=== PATIENT | female | born 1965 | race African-American/Black ===

== ENCOUNTER 2016-06-18 11:22 | Inpatient (IN) | payer OTHER, MEDICARE ==
--- NOTE | ~2016-06-18 | OP ---
Record Of Operation [facility] [address] [place]. [address] NAME: GIOVANI AGUIRRE : 65 STATUS : ADM IN PAT#: [id number] AGE: 50 ADM/REG DATE : 06/18/16 MR#: [id number] REPORT SERV DATE: 06/22/16 DICTATED BY: TRELL ALCOCER DATE: 06/20/16 REPORT STATUS : Draft TRANSCRIBED BY: HEDY DATE: 06/20/16 DATE OF PROCEDURE: 06/19/2016 PREOPERATIVE DIAGNOSES: 1. Thrombosed left upper extremity arteriovenous graft. 2. Chronic kidney disease, stage V. POSTOPERATIVE DIAGNOSES: 1. Thrombosed left upper extremity arteriovenous graft. 2. Chronic kidney disease, stage V. PROCEDURE: 1. Right IJ PermCath. 2. AV graft thrombectomy. 3. Fistulogram. 4. Open angioplasty and stenting of the venous anastomosis. SURGEON: Trell Alcocer M.D. COMMERCIAL PLUMBER: Sergei Anderson. ANESTHESIA: MAC plus local. INDICATIONS: The patient is a 50-year-old female with chronic kidney disease, stage V, who underwent a forearm loop AV graft. This thrombosed, and it looks like she is heading towards dialysis. I talked to her about the risks, benefits, and alternatives of PermCath placement as well as AV graft thrombectomy with intervention. She agreed to proceed. DESCRIPTION OF PROCEDURE: After informed consent was obtained, the patient was taken to the operating room and placed in a supine position on the operating table. The patient's right neck and chest were prepped and draped in the usual sterile fashion. Monitored anesthesia was administered along with some local anesthesia. Ultrasound-guided access was obtained of the right internal jugular vein. The ultrasound image was documented on the chart. I passed a wire centrally. I made a small skin incision along the right neck and chest. I tunneled a 19-cm curved HemoSplit catheter from the right chest to the right neck. I inserted a peel-away sheath over the aforementioned wire using fluoroscopic guidance. I subsequently inserted the catheter into the peel-away sheath under fluoroscopy and peeled away the sheath. I confirmed that the catheter was not kinked and that it aspirated and flushed well. The right neck wound was closed. The catheter was sutured in place and packed with heparin. At this point, the left upper extremity was prepped and draped in the usual sterile fashion. I began by opening up the forearm skin incision. I controlled the AV graft. I systemically heparinized. I created a transverse graftotomy. I passed a 4- [place] Jasmin catheter towards the venous end of the graft. I retrieved thrombus. I obtained imaging that demonstrated persistent thrombus. I passed a Jasmin catheter multiple times and still was not able to retrieve one portion of the thrombus. It looked like there was a very small outflow brachial vein. There was perhaps some stenosis noted Record Of Operation [address] [place]. [address] NAME: GIOVANI AGUIRRE : 65 STATUS : ADM IN [facility]#: [id number] AGE: 50 ADM/REG DATE : 06/18/16 MR#: [id number] REPORT SERV DATE: 06/22/16 DICTATED BY: TRELL ALCOCER DATE: 06/20/16 REPORT STATUS : Draft TRANSCRIBED BY: HEDY DATE: 06/20/16 right at the toe of the anastomosis. Thus, I angioplastied this region with a 7 mm balloon and tried again to perform a thrombectomy. After several failed attempts and with a persistent stenosis, I stented the venous anastomosis with an 8 x 50 mm VIABAHN stent. I subsequently angioplastied this stent. Imaging obtained afterwards showed a great result. I then performed a thrombectomy of the arterial side of the graft. I obtained imaging that demonstrated no residual thrombus. There was no distal embolization. Thus, I withdrew my sheath and closed up the graftotomy. I washed out the wound, achieved hemostasis, and closed the wound in layers. The patient tolerated the procedure well without any intraprocedural complications noted. SET UP MACHINIST/HEDY Trell Alcocer M.D. / [id number] CC: Erin Matias M.D.
--- NOTE | ~2016-06-18 | OP ---
Record Of Operation [facility] [address] [place]. [address] NAME: GIOVANI AGUIRRE : 65 STATUS : ADM IN PAT#: [id number] AGE: 50 ADM/REG DATE : 06/18/16 MR#: [id number] REPORT SERV DATE: 06/22/16 DICTATED BY: TRELL ALCOCER DATE: 06/20/16 REPORT STATUS : Draft TRANSCRIBED BY: MODAmada DATE: 06/20/16 DATE OF PROCEDURE: 06/18/2016 PREOPERATIVE DIAGNOSIS: Chronic kidney disease, stage V. POSTOPERATIVE DIAGNOSIS: Chronic kidney disease, stage V. PROCEDURE: Left forearm loop AV graft. SURGEON: Trell Alcocer M.D. SPA CONSULTANT: Bharat Esposito. ANESTHESIA: Block. INDICATIONS: The patient is a 50-year-old female, who has chronic kidney disease, stage V. I talked to her about the risks, benefits, and alternatives of catheter-based dialysis, arteriovenous fistulas, and arteriovenous grafts. With all this in mind, she agreed to proceed. DESCRIPTION OF PROCEDURE: After informed consent was obtained, the patient was taken to the operating room and placed in the supine position on the operating table. Monitored anesthesia was administered along with a block. The patient's left upper extremity was examined with an ultrasound. I found that the veins were all small, so we decided to perform a forearm loop graft to preserve as many dialysis access options as possible. A transverse skin incision was made just distal to the antecubital fossa. Cautery was used to deepen the incision. I dissected out the brachial artery and the brachial vein. The brachial artery was about 3 mm in diameter. The brachial vein was about the same size. It looked like there were actually paired brachial veins. I tunneled a 4 to 7 mm PTFE graft in a subcutaneous position. The arterial end was on the medial aspect of the forearm. I used the assistance of a counterincision along the forearm. I flushed the graft, confirmed that there were no kinks. I spatulated both ends. I systemically heparinized. I controlled the brachial artery. I created a longitudinal arteriotomy, onto which I sewed the end of the arteriovenous graft. I flushed off air and debris. I tied down the sutures. I flushed the graft and clamped it. I controlled the brachial vein. I created a longitudinal venotomy. I sewed the spatulated end of the graft onto the side of the vein. I flushed off air and debris before tying down the sutures. I released flow. There was good continuous flow through the graft and a thrill more centrally within the brachial vein. I washed out the wound, achieved hemostasis, and closed the wound in layers. The patient tolerated the procedure well without any intraprocedural complications noted. ROUTE CDL DRIVER/HEDY Trell Schulz Record Of Operation [address] [place]. [address] NAME: GIOVANI AGUIRRE : 65 STATUS : ADM IN PAT#: [id number] AGE: 50 ADM/REG DATE : 06/18/16 MR#: [id number] REPORT SERV DATE: 06/22/16 DICTATED BY: TRELL ALCOCER DATE: 06/20/16 REPORT STATUS : Draft TRANSCRIBED BY: MODL DATE: 06/20/16 Erin Alcocer / [id number] CC: Erin Matias M.D.
--- NOTE | ~2016-06-18 | CN ---
Consultation Report [facility] [address] [place]. [address] NAME: GIOVANI AGUIRRE : 65 STATUS : ADM IN PAT#: [id number] AGE: 50 ADM/REG DATE : 06/18/16 MR#: [id number] REPORT SERV DATE: 06/22/16 DICTATED BY: LOUIS SINCLAIR DATE: 06/22/16 REPORT STATUS : Draft TRANSCRIBED BY: MODAmada DATE: 06/22/16 PSYCHIATRIC CONSULTATION DATE OF CONSULTATION: 06/22/2016 I reviewed this patient's medical record and also some old records. I discussed her status with her nurse. I discussed her history with her who was at the bedside. HISTORY OF PRESENT ILLNESS: She was admitted with end-stage renal disease and poorly controlled diabetes mellitus. Her explained that she was depressed a few days ago when she was informed about the progression of her kidney disease and the need for hemodialysis. He said since that time she has been doing much better, and she is now more reconciled to her medical status. PAST PSYCHIATRIC HISTORY: Some years ago, she was treated at [facility] for depression. She returned to [facility] a year or two ago to get counseling for opioid dependence. Subsequently, she succeeded in totally getting off all opioids. Unfortunately, during this admission, opioids have been reintroduced, with the risk of reactivating her dependence. SOCIAL HISTORY: Her is very supportive. MENTAL STATUS: The patient was reluctantly cooperative with this examination. She asked her to answer most of my questions and to generally speak for her. However, when the subject of opioid dependence was raised, she did talk in a defensive and angry manner. She said "what am I supposed to do when I am in pain." "What about my fibromyalgia." Her mood overall was somewhat dysphoric. Her affect was mildly labile. Her thinking was logical. She had no delusions. She had no hallucinations. She was oriented to time, place, and person. DIAGNOSES: 1. Depression associated with chronic kidney disease and the need for hemodialysis. 2. 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 RECOMMENDATIONS: We should try to keep opioids prescribing to a minimum. I will not prescribe an antidepressant medication at this time, but this medication may be considered later if her depression increases or becomes more continuous. I will sign off. BETSY/HEDY Louis Sinclair M.D. Consultation Report [address] [place]. [address] NAME: GIOVANI AGUIRRE : 65 STATUS : ADM IN PAT#: [id number] AGE: 50 ADM/REG DATE : 06/18/16 MR#: [id number] REPORT SERV DATE: 06/22/16 DICTATED BY: LOUIS SINCLAIR DATE: 06/22/16 REPORT STATUS : Draft TRANSCRIBED BY: SAMYL DATE: 06/22/16 / [id number] CC: Trell Alcocer M.D. NO PCP
--- NOTE | ~2016-06-18 | OP ---
Record Of Operation [facility] [address] [place]. [address] NAME: GIOVANI AGUIRRE : 65 STATUS : DIS IN PAT#: [id number] AGE: 50 ADM/REG DATE : 06/18/16 MR#: [id number] REPORT SERV DATE: 06/28/16 DICTATED BY: TRELL DANG DATE: 06/28/16 REPORT STATUS : Draft TRANSCRIBED BY: MODAmada DATE: 06/28/16 DATE OF PROCEDURE: 06/24/2016 PREOPERATIVE DIAGNOSIS: End-stage renal disease. POSTOPERATIVE DIAGNOSIS: End-stage renal disease. PROCEDURE: Left brachial artery to axillary vein AV graft. SURGEON: Trell Dang M.D. ANESTHESIA: Block plus local. INDICATION: The patient is a 50-year-old female, who has end-stage renal disease. I placed a forearm loop graft, but it thrombosed right away. I performed a thrombectomy and stented the outflow, but the graft thrombosed again. Now, she has consented for an upper arm graft. DESCRIPTION OF PROCEDURE: After informed consent was obtained, the patient was taken to the operating room and placed in the supine position on the operating table. A block had previously been administered. The patient's left upper extremity was prepped and draped in usual sterile fashion. The block did not work very well, so local anesthetic was administered. Skin incisions were made overlying the brachial artery and axillary vein. These were dissected out. I systemically heparinized after tunneling a 4 to 7 mm PTFE graft in the subcutaneous position. I spatulated the 7 mm end of the graft and sewed it onto the side of the axillary vein after creating a venotomy. Of note, the axillary vein was about 3 mm in diameter. I then controlled the brachial artery, which measured about 5 mm in diameter. I created a longitudinal arteriotomy. I spatulated the 4 mm end of the graft and sewed it onto the side of the artery. I flushed of air and debris before tying down the sutures. I then achieved hemostasis. I washed out the wounds and closed them in layers. The patient had a very weak thrill within our graft. She has very limited options for dialysis access, so we may consider putting her on anticoagulation. POSITION CLASSIFICATION SPECIALIST/HEDY Trell Dang M.D. / [id number] CC: Trell Dang M.D. [facility]
[~2016-06-18 11:22] MED LIST: AMIT100 PO; AMIT50 PO; AMLODIPINE; AT25 PO; BAC PO; CAT1 PO; COQ10100 MG PO; DILT-XR180 MG PO; DIOV160 PO; DIOVAN320 MG PO; DOLOPHINE10 MG PO; DURA25 TOP; FLONASE NAS; FLOVENT DISK250 MCG INH; FOLIC PO; GLUCAGEN IM; HCTZ25B PO; HUMAPUMP SC; HYDROCHLOROT12.5 MG PO; HYGROTON 25 MG25 MG PO; KLOR-CON M2020 MEQ PO; LANTUS FOR SC; LEVAQUIN750 MG PO; LEVSINTAB PO; LIOR10 PO; LORT7 PO; LORTAB10 PO; MACROBID PO; METHOC750B PO; NORV5 PO; NOVOLOG SC; OXYCOD PO; OXYCONTIN15 MG PO; PR25 PO; PRILO PO; REG PO; REG5 PO; SAVELLA50 MG PO; STRESS600T PO; T PO; VASOTEC20 MG PO; VITAMIN D1000 UNI1 PO; VITE PO; ZANAFLEX2 MG OR; ZANTAC150 MG PO; ZOFRAN4 PO; ZOFRANODT8 PO
[2016-06-19 09:26] LABS: HEMOGLOBIN 8.2 g/dL (12.0-16.0); MEAN CORPUSCULAR HEMOGLOB 23.3 pg (26.0-34.0); PLATELET COUNT 496 10/3/uL (150-400); RBC DISTRIBUTION WIDTH 14.3 % (12.0-16.0); RED CELL COUNT 3.52 10/6/uL (4.0-5.6); WHITE BLOOD CELLS 10.7 10/3/uL (4.5-10.5)
[2016-06-19 09:27] LABS: MANUAL DIFF YES %; MEAN CORPUS HGB CONC 32.8 g/dL (32.0-36.0)
[2016-06-19 09:40] LABS: A/G RATIO 0.3 (0.7-1.9); ALBUMIN 1.5 G/DL (3.5-5.0); ALKALINE PHOSPHATASE 88 U/L (45-117); BUN (BLOOD UREA NITROGEN) 30 MG/DL (6-23); CALCIUM, SERUM 8.3 MG/DL (8.5-10.4); CHLORIDE, SERUM 114 MMOL/L (96-112); CO2 (CARBON DIOXIDE) 18 MMOL/L (24-34); CREATININE 5.51 MG/DL (0.55-1.02); GFR AFRICAN AMERICAN 10 ML/MIN (>=60); GFR NON AFRICAN AMERICAN 8 ML/MIN (>=60); GLOBULIN 4.6 G/DL (2.5-4.1); GLUCOSE, SERUM 159 MG/DL (60-99); POTASSIUM, SERUM 4.4 MMOL/L (3.5-5.3); SGOT(AST) 17 U/L (5-40); SGPT(ALT) 15 U/L (5-65); SODIUM, SERUM 143 MMOL/L (135-148); TOTAL BILIRUBIN 0.1 MG/DL (0-1.2); TOTAL PROTEIN 6.1 G/DL (6.0-8.5)
[2016-06-19 09:46] LABS: BAND NEUTROPHILS 10 %; LYMPHOCYTES 14 %; MONOCYTES 7 %; MONOCYTES ABSOLUTE (CALC) 0.75 10/3/uL (0.21-1.20); NEUTROPHILS ABSOLUTE (CALC) 8.45 10/3/uL (2.02-8.40); SEGMENTED NEUTROPHIL (0) 69 %; TOTAL NUCLEATED CELLS 100
[2016-06-19 09:47] LABS: HYPOCHROMIA 1+ (3-10/OIF) (0-2/OIF); PLATELET ESTIMATE SLT INC (ADEQUATE)
[2016-06-20 07:05] LABS: BASOPHILS 0.1 %; BASOPHILS ABSOLUTE 0.01 10/3/uL (0.0-0.16); EOSINOPHILS 2.4 %; EOSINOPHILS ABSOLUTE 0.28 10/3/uL (0.0-0.53); HEMATOCRIT 24.4 % (36.0-48.0); HEMOGLOBIN 7.9 g/dL (12.0-16.0); IMMATURE GRANULOCYTES 1.7 %; IMMATURE GRANULOCYTES ABSOLUTE 0.19 10/3/uL (0.0-0.11); LYMPHOCYTES 41.7 %; LYMPHOCYTES ABSOLUTE 4.78 10/3/uL (0.67-4.30); MEAN CORPUS HGB CONC 32.4 g/dL (32.0-36.0); MEAN CORPUSCULAR HEMOGLOB 23.2 pg (26.0-34.0); MEAN CORPUSCULAR VOLUME 71.6 fL (80-100); MEAN PLATELET VOLUME 8.2 fL (9.2-13.0); MONOCYTES 7.2 %; MONOCYTES ABSOLUTE 0.82 10/3/uL (0.21-1.20); NEUTROPHILS 46.9 %; NEUTROPHILS ABSOLUTE 5.37 10/3/uL (2.02-8.40); PLATELET COUNT 540 10/3/uL (150-400); RBC DISTRIBUTION WIDTH 14.6 % (12.0-16.0); RED CELL COUNT 3.41 10/6/uL (4.0-5.6); WHITE BLOOD CELLS 11.5 10/3/uL (4.5-10.5)
[2016-06-20 07:07] LABS: MANUAL DIFF NO %
[2016-06-20 07:28] LABS: A/G RATIO 0.3 (0.7-1.9); ALBUMIN 1.3 G/DL (3.5-5.0); ALKALINE PHOSPHATASE 82 U/L (45-117); BUN (BLOOD UREA NITROGEN) 31 MG/DL (6-23); CALCIUM, SERUM 8.4 MG/DL (8.5-10.4); CHLORIDE, SERUM 115 MMOL/L (96-112); CO2 (CARBON DIOXIDE) 17 MMOL/L (24-34); CREATININE 5.49 MG/DL (0.55-1.02); GFR AFRICAN AMERICAN 10 ML/MIN (>=60); GFR NON AFRICAN AMERICAN 8 ML/MIN (>=60); GLOBULIN 4.7 G/DL (2.5-4.1); GLUCOSE, SERUM 70 MG/DL (60-99); PHOSPHORUS, SERUM 3.1 MG/DL (2.5-4.5); SGOT(AST) 13 U/L (5-40); SGPT(ALT) 8 U/L (5-65); SODIUM, SERUM 142 MMOL/L (135-148); TOTAL BILIRUBIN 0.2 MG/DL (0-1.2)
[2016-06-20 07:36] LABS: ACANTHOCYTES OCC (0-2/OIF); OVALOCYTES 1+ (3-10/OIF) (0-2/OIF); PLATELET ESTIMATE SLT INC (ADEQUATE)
[2016-06-21 07:57] LABS: BASOPHILS 0.2 %; BASOPHILS ABSOLUTE 0.02 10/3/uL (0.0-0.16); EOSINOPHILS ABSOLUTE 0.26 10/3/uL (0.0-0.53); HEMATOCRIT 25.6 % (36.0-48.0); LYMPHOCYTES 35.9 %; LYMPHOCYTES ABSOLUTE 4.79 10/3/uL (0.67-4.30); MEAN CORPUS HGB CONC 31.3 g/dL (32.0-36.0); MEAN CORPUSCULAR HEMOGLOB 22.3 pg (26.0-34.0); MEAN CORPUSCULAR VOLUME 71.3 fL (80-100); MEAN PLATELET VOLUME 8.4 fL (9.2-13.0); MONOCYTES 6.3 %; MONOCYTES ABSOLUTE 0.84 10/3/uL (0.21-1.20); NEUTROPHILS 52.6 %; NEUTROPHILS ABSOLUTE 7.02 10/3/uL (2.02-8.40); PLATELET COUNT 488 10/3/uL (150-400); RBC DISTRIBUTION WIDTH 14.4 % (12.0-16.0); RED CELL COUNT 3.59 10/6/uL (4.0-5.6); WHITE BLOOD CELLS 13.3 10/3/uL (4.5-10.5)
[2016-06-21 07:59] LABS: MANUAL DIFF NO %
[2016-06-21 08:07] LABS: A/G RATIO 0.3 (0.7-1.9); ALBUMIN 1.5 G/DL (3.5-5.0); ALKALINE PHOSPHATASE 82 U/L (45-117); BUN (BLOOD UREA NITROGEN) 28 MG/DL (6-23); CALCIUM, SERUM 8.3 MG/DL (8.5-10.4); CHLORIDE, SERUM 113 MMOL/L (96-112); CO2 (CARBON DIOXIDE) 22 MMOL/L (24-34); CREATININE 4.51 MG/DL (0.55-1.02); GFR AFRICAN AMERICAN 12 ML/MIN (>=60); GFR NON AFRICAN AMERICAN 11 ML/MIN (>=60); GLOBULIN 4.8 G/DL (2.5-4.1); GLUCOSE, SERUM 88 MG/DL (60-99); PHOSPHORUS, SERUM 2.8 MG/DL (2.5-4.5); POTASSIUM, SERUM 4.4 MMOL/L (3.5-5.3); SGOT(AST) 20 U/L (5-40); SGPT(ALT) 7 U/L (5-65); SODIUM, SERUM 143 MMOL/L (135-148); TOTAL BILIRUBIN < 0.1 MG/DL (0-1.2); TOTAL PROTEIN 6.3 G/DL (6.0-8.5)
[2016-06-21 09:16] LABS: PLATELET ESTIMATE SLT INC (ADEQUATE)
[2016-06-21 09:18] LABS: TOXIC GRANULATION SLT
[2016-06-22 08:38] LABS: HEPATITIS B SURFACE ANTIGEN NON-REACTIVE (NON-REACT)
[2016-06-22 08:42] LABS: HEPATITIS C ANTIBODY NON-REACTIVE (NON-REACT)
[2016-06-22 08:43] LABS: HEPATITIS B CORE AB IGM NON-REACTIVE (NON-REAC)
[2016-06-22 08:45] LABS: HEP A ANTIBODY IGM NON-REACTIVE (NON-REACT)
[2016-06-22 08:46] LABS: HIV COMBO NON-REACTIVE (NON REAC)
[2016-06-22 14:35] LABS: BASOPHILS 0.2 %; BASOPHILS ABSOLUTE 0.02 10/3/uL (0.0-0.16); EOSINOPHILS 2.7 %; EOSINOPHILS ABSOLUTE 0.25 10/3/uL (0.0-0.53); HEMOGLOBIN 7.1 g/dL (12.0-16.0); IMMATURE GRANULOCYTES 2.2 %; LYMPHOCYTES ABSOLUTE 3.02 10/3/uL (0.67-4.30); MEAN CORPUS HGB CONC 32.7 g/dL (32.0-36.0); MEAN CORPUSCULAR HEMOGLOB 23.4 pg (26.0-34.0); MEAN CORPUSCULAR VOLUME 71.6 fL (80-100); MEAN PLATELET VOLUME 8.2 fL (9.2-13.0); MONOCYTES 4.5 %; MONOCYTES ABSOLUTE 0.41 10/3/uL (0.21-1.20); NEUTROPHILS 57.4 %; NEUTROPHILS ABSOLUTE 5.26 10/3/uL (2.02-8.40); RBC DISTRIBUTION WIDTH 14.5 % (12.0-16.0); RED CELL COUNT 3.03 10/6/uL (4.0-5.6); WHITE BLOOD CELLS 9.2 10/3/uL (4.5-10.5)
[2016-06-22 14:36] LABS: HEMATOCRIT 21.7 % (36.0-48.0); MANUAL DIFF NO %; PLATELET COUNT 341 10/3/uL (150-400)
[2016-06-22 14:52] LABS: A/G RATIO 0.3 (0.7-1.9); ALBUMIN 1.4 G/DL (3.5-5.0); ALKALINE PHOSPHATASE 79 U/L (45-117); CALCIUM, SERUM 7.8 MG/DL (8.5-10.4); CHLORIDE, SERUM 109 MMOL/L (96-112); GLOBULIN 4.3 G/DL (2.5-4.1); PHOSPHORUS, SERUM 2.3 MG/DL (2.5-4.5); POTASSIUM, SERUM 3.9 MMOL/L (3.5-5.3); SGOT(AST) 19 U/L (5-40); SGPT(ALT) 8 U/L (5-65); SODIUM, SERUM 142 MMOL/L (135-148); TOTAL BILIRUBIN 0.2 MG/DL (0-1.2); TOTAL PROTEIN 5.7 G/DL (6.0-8.5)
[2016-06-22 14:53] LABS: BUN (BLOOD UREA NITROGEN) 22 MG/DL (6-23); CO2 (CARBON DIOXIDE) 27 MMOL/L (24-34); CREATININE 3.15 MG/DL (0.55-1.02); GFR AFRICAN AMERICAN 19 ML/MIN (>=60); GFR NON AFRICAN AMERICAN 16 ML/MIN (>=60); GLUCOSE, SERUM 169 MG/DL (60-99)
[2016-06-23 07:05] LABS: BASOPHILS 0.3 %; BASOPHILS ABSOLUTE 0.03 10/3/uL (0.0-0.16); EOSINOPHILS 2.4 %; EOSINOPHILS ABSOLUTE 0.26 10/3/uL (0.0-0.53); HEMATOCRIT 22.9 % (36.0-48.0); HEMOGLOBIN 7.3 g/dL (12.0-16.0); IMMATURE GRANULOCYTES 2.4 %; IMMATURE GRANULOCYTES ABSOLUTE 0.26 10/3/uL (0.0-0.11); LYMPHOCYTES 30.7 %; LYMPHOCYTES ABSOLUTE 3.26 10/3/uL (0.67-4.30); MEAN CORPUS HGB CONC 31.9 g/dL (32.0-36.0); MEAN CORPUSCULAR HEMOGLOB 22.9 pg (26.0-34.0); MEAN CORPUSCULAR VOLUME 71.8 fL (80-100); MEAN PLATELET VOLUME 8.5 fL (9.2-13.0); MONOCYTES 5.8 %; MONOCYTES ABSOLUTE 0.62 10/3/uL (0.21-1.20); NEUTROPHILS 58.4 %; NEUTROPHILS ABSOLUTE 6.19 10/3/uL (2.02-8.40); PLATELET COUNT 374 10/3/uL (150-400); RBC DISTRIBUTION WIDTH 14.4 % (12.0-16.0); RED CELL COUNT 3.19 10/6/uL (4.0-5.6); WHITE BLOOD CELLS 10.6 10/3/uL (4.5-10.5)
[2016-06-23 07:06] LABS: MANUAL DIFF NO %
[2016-06-23 07:19] LABS: A/G RATIO 0.4 (0.7-1.9); ALBUMIN 1.5 G/DL (3.5-5.0); ALKALINE PHOSPHATASE 82 U/L (45-117); BUN (BLOOD UREA NITROGEN) 24 MG/DL (6-23); CHLORIDE, SERUM 111 MMOL/L (96-112); CO2 (CARBON DIOXIDE) 25 MMOL/L (24-34); CREATININE 3.76 MG/DL (0.55-1.02); GFR AFRICAN AMERICAN 15 ML/MIN (>=60); GFR NON AFRICAN AMERICAN 13 ML/MIN (>=60); GLOBULIN 4.2 G/DL (2.5-4.1); GLUCOSE, SERUM 80 MG/DL (60-99); POTASSIUM, SERUM 3.9 MMOL/L (3.5-5.3); SGOT(AST) 20 U/L (5-40); SODIUM, SERUM 145 MMOL/L (135-148); TOTAL BILIRUBIN 0.1 MG/DL (0-1.2); TOTAL PROTEIN 5.7 G/DL (6.0-8.5)
[2016-06-23 07:33] LABS: SGPT(ALT) 7 U/L (5-65)
[2016-06-24 11:31] LABS: BASOPHILS 0.3 %; BASOPHILS ABSOLUTE 0.03 10/3/uL (0.0-0.16); EOSINOPHILS 2.3 %; EOSINOPHILS ABSOLUTE 0.22 10/3/uL (0.0-0.53); IMMATURE GRANULOCYTES 0.8 %; IMMATURE GRANULOCYTES ABSOLUTE 0.08 10/3/uL (0.0-0.11); LYMPHOCYTES 39.4 %; LYMPHOCYTES ABSOLUTE 3.83 10/3/uL (0.67-4.30); MEAN CORPUS HGB CONC 32.7 g/dL (32.0-36.0); MEAN CORPUSCULAR HEMOGLOB 23.5 pg (26.0-34.0); MEAN CORPUSCULAR VOLUME 71.9 fL (80-100); MEAN PLATELET VOLUME 8.1 fL (9.2-13.0); MONOCYTES 6.5 %; MONOCYTES ABSOLUTE 0.63 10/3/uL (0.21-1.20); NEUTROPHILS 50.7 %; NEUTROPHILS ABSOLUTE 4.93 10/3/uL (2.02-8.40); PLATELET COUNT 281 10/3/uL (150-400); RBC DISTRIBUTION WIDTH 14.3 % (12.0-16.0); RED CELL COUNT 2.85 10/6/uL (4.0-5.6); WHITE BLOOD CELLS 9.7 10/3/uL (4.5-10.5)
[2016-06-24 11:32] LABS: HEMATOCRIT 20.5 % (36.0-48.0); HEMOGLOBIN 6.7 g/dL (12.0-16.0)
[2016-06-24 11:35] LABS: MANUAL DIFF NO %
[2016-06-24 11:46] LABS: ALBUMIN 1.3 G/DL (3.5-5.0); BUN (BLOOD UREA NITROGEN) 29 MG/DL (6-23); CHLORIDE, SERUM 109 MMOL/L (96-112); CO2 (CARBON DIOXIDE) 24 MMOL/L (24-34); CREATININE 4.02 MG/DL (0.55-1.02); GFR AFRICAN AMERICAN 14 ML/MIN (>=60); GFR NON AFRICAN AMERICAN 12 ML/MIN (>=60); GLUCOSE, SERUM 116 MG/DL (60-99); PHOSPHORUS, SERUM 3.5 MG/DL (2.5-4.5); POTASSIUM, SERUM 4.3 MMOL/L (3.5-5.3); SODIUM, SERUM 143 MMOL/L (135-148)
[2016-06-24 11:50] LABS: HYPOCHROMIA 1+ (3-10/OIF) (0-2/OIF); PLATELET ESTIMATE ADQ (ADEQUATE); RBC MORPHOLOGY ABN (NORMAL); TARGET CELLS OCC (1-2/OIF) (0-1/OIF)
[2016-06-25 07:15] LABS: BASOPHILS 0.2 %; BASOPHILS ABSOLUTE 0.03 10/3/uL (0.0-0.16); EOSINOPHILS 1.3 %; EOSINOPHILS ABSOLUTE 0.18 10/3/uL (0.0-0.53); IMMATURE GRANULOCYTES 0.8 %; IMMATURE GRANULOCYTES ABSOLUTE 0.11 10/3/uL (0.0-0.11); LYMPHOCYTES ABSOLUTE 3.89 10/3/uL (0.67-4.30); MEAN CORPUS HGB CONC 33.3 g/dL (32.0-36.0); MEAN CORPUSCULAR HEMOGLOB 25.2 pg (26.0-34.0); MEAN PLATELET VOLUME 8.9 fL (9.2-13.0); MONOCYTES 5.4 %; MONOCYTES ABSOLUTE 0.75 10/3/uL (0.21-1.20); NEUTROPHILS 64.3 %; NEUTROPHILS ABSOLUTE 8.91 10/3/uL (2.02-8.40); PLATELET COUNT 280 10/3/uL (150-400); RBC DISTRIBUTION WIDTH 14.9 % (12.0-16.0)
[2016-06-25 07:17] LABS: HEMATOCRIT 31.5 % (36.0-48.0); HEMOGLOBIN 10.5 g/dL (12.0-16.0); MEAN CORPUSCULAR VOLUME 75.5 fL (80-100); RED CELL COUNT 4.17 10/6/uL (4.0-5.6); WHITE BLOOD CELLS 13.9 10/3/uL (4.5-10.5)
[2016-06-25 07:18] LABS: MANUAL DIFF NO %
[2016-06-25 07:26] LABS: ALBUMIN 1.6 G/DL (3.5-5.0); BUN (BLOOD UREA NITROGEN) 14 MG/DL (6-23); CALCIUM, SERUM 7.8 MG/DL (8.5-10.4); CHLORIDE, SERUM 107 MMOL/L (96-112); CO2 (CARBON DIOXIDE) 26 MMOL/L (24-34); CREATININE 2.71 MG/DL (0.55-1.02); GFR AFRICAN AMERICAN 23 ML/MIN (>=60); GFR NON AFRICAN AMERICAN 20 ML/MIN (>=60); GLUCOSE, SERUM 103 MG/DL (60-99); PHOSPHORUS, SERUM 2.8 MG/DL (2.5-4.5); POTASSIUM, SERUM 3.9 MMOL/L (3.5-5.3); SODIUM, SERUM 144 MMOL/L (135-148)
[2016-06-25] MEDS ORDERED: NORV10 PO (12:56)
[2016-06-25] MEDS ORDERED: ATEN50 (12:57)
[2016-06-25] MEDS ORDERED: PEP20 PO (12:59)
[2016-06-25] MEDS ORDERED: ZOFRAN ODT4 MG PO (13:02)
== END 2016-06-25 16:25 | disposition home or self-care (01) | DRG 252 ==
LOC: SDC 11:22 → 2SO 14:15
PROVIDERS: Internal Medicine Nephrology; Nurse Practitioner; Registered Nurse; Student in an Organized Health Care Education/Training Program; Surgery
PROC: 05R Upper Veins, Replacement (ICD-10-PCS; 2016-06-18)
PROC: B5131ZA Fluoroscopy of Right Jugular Veins using Low Osmolar Contrast, Guidance (ICD-10-PCS; 2016-06-18)
PROC: 03783DZ Dilation of Left Brachial Artery with Intraluminal Device, Percutaneous Approach (ICD-10-PCS; 2016-06-18)
PROC: 02HV33Z Insertion of Infusion Device into Superior Vena Cava, Percutaneous Approach (ICD-10-PCS; 2016-06-18)
PROC: 4A02X4A Measurement of Cardiac Electrical Activity, Guidance, External Approach (ICD-10-PCS; 2016-06-18)
PROC: 05HM33Z Insertion of Infusion Device into Right Internal Jugular Vein, Percutaneous Approach (ICD-10-PCS; principal; 2016-06-18 08:15)
PROC: 05C93ZZ Extirpation of Matter from Right Brachial Vein, Percutaneous Approach (ICD-10-PCS; 2016-06-19)
PROC: 03C83ZZ Extirpation of Matter from Left Brachial Artery, Percutaneous Approach (ICD-10-PCS; 2016-06-19)
PROC: 037 Upper Arteries, Dilation (ICD-10-PCS; 2016-06-19)
PROC: 03U807Z Supplement Left Brachial Artery with Autologous Tissue Substitute, Open Approach (ICD-10-PCS; 2016-06-19)
PROC: 5A1D60Z (ICD-10-PCS; 2016-06-19)
PROC: B5131ZZ Fluoroscopy of Right Jugular Veins using Low Osmolar Contrast (ICD-10-PCS; 2016-06-19)
PROC: 05B80ZZ Excision of Left Axillary Vein, Open Approach (ICD-10-PCS; 2016-06-19)
PROC: B51W1ZZ Fluoroscopy of Dialysis Shunt/Fistula using Low Osmolar Contrast (ICD-10-PCS; 2016-06-20)
PROC: 05HY33Z Insertion of Infusion Device into Upper Vein, Percutaneous Approach (ICD-10-PCS; 2016-06-20)
PROC: 5A1D60Z (ICD-10-PCS; 2016-06-20)
PROC: 30233N1 Transfusion of Nonautologous Red Blood Cells into Peripheral Vein, Percutaneous Approach (ICD-10-PCS; 2016-06-20)
DX: I13.0 Hypertensive heart and chronic kidney disease with heart failure and stage 1 through stage 4 chronic kidney disease, or unspecified chronic kidney disease (principal); N18.6 End stage renal disease; N17.9 Acute kidney failure, unspecified; E87.2 Acidosis; K31.84 Gastroparesis; E44.0 Moderate protein-calorie malnutrition; T82.868A Thrombosis due to vascular prosthetic devices, implants and grafts, initial encounter; E10.43 Type 1 diabetes mellitus with diabetic autonomic (poly)neuropathy; E11.22 Type 2 diabetes mellitus with diabetic chronic kidney disease; I82.613 Acute embolism and thrombosis of superficial veins of upper extremity, bilateral; I50.9 Heart failure, unspecified; E83.42 Hypomagnesemia; E86.0 Dehydration; E87.6 Hypokalemia; F41.9 Anxiety disorder, unspecified; F32.9 Major depressive disorder, single episode, unspecified; F11.21 Opioid dependence, in remission; K59.00 Constipation, unspecified; G89.29 Other chronic pain; D64.9 Anemia, unspecified; Z99.2 Dependence on renal dialysis; E10.65 Type 1 diabetes mellitus with hyperglycemia; Z96.41 Presence of insulin pump (external) (internal); Z88.6 Allergy status to analgesic agent; Z91.040 Latex allergy status; Z90.710 Acquired absence of both cervix and uterus; Z98.890 Other specified postprocedural states; Z74.9 Problem related to care provider dependency, unspecified; K75.81 Nonalcoholic steatohepatitis (NASH); G89.4 Chronic pain syndrome; K21.9 Gastro-esophageal reflux disease without esophagitis; D63.1 Anemia in chronic kidney disease; Z68.20 Body mass index [BMI] 20.0-20.9, adult; J32.9 Chronic sinusitis, unspecified; J40 Bronchitis, not specified as acute or chronic
CPT/HCPCS: 36415; 36430; 36558; 36569; 36830; 36833; 71020; 76775; 77001; 80048; 80053; 80069; 80074; 80076; 81001; 81050; 82570; 82575; 82607; 82728; 82746; 82962; 83036; 83540; 83550; 83690; 83735; 84100; 84155; 84156; 84165; 84166; 84300; 84443; 84484; 85025; 85610; 85730; 86039; 86334; 86850; 86870; 86900; 86901; 86902; 86920; 86922; 87389; 87804; 93005; 93971; 96361; 96372; 96374; 99284; 99285; A9270-GY; C1725; C1750; C1751; C1757; C1768; C1769; C1874; C1894; G0257; J0360; J0690; J1170; J1885; J2250; J2370; J2405; J2550; J2765; J2795; J3010; P9016; Q9966

== ENCOUNTER 2016-09-21 09:42 | Observation (INO) | payer OTHER, MEDICARE ==
--- NOTE | ~2016-09-21 | HP ---
History And Physical [facility] [address] [place]. [address] NAME: GIOVANI AGUIRRE : 65 STATUS : ADM Dalila PAT#: [id number] AGE: 50 ADM/REG DATE : 09/21/16 MR#: [id number] REPORT SERV DATE: 09/21/16 DICTATED BY: VLADIMIR WRIGHT DATE: 09/21/16 REPORT STATUS : Draft TRANSCRIBED BY: MODL DATE: 09/21/16 DATE OF ADMISSION: 09/21/2016 Current location is ER bed 16 with plans for transition to room 210. REASON FOR ADMISSION: End-stage renal disease in a patient with complaint of chest pain. HISTORY OF PRESENT ILLNESS: A very pleasant 50-year-old female patient, who dialyzes on a Wednesday, Wednesday, Wednesday schedule via left upper extremity access at [place] [address] location. She reports to [facility] after a complaint today of chest pain onset during her last hour of dialysis. The patient reports that during the onset of chest pain that she was given back fluids on two separate occasions, which briefly relieved her chest pain. She reports some level of associated hypotension during this episode, but cannot strictly define numerical values of her blood pressure readings. She has been evaluated by Cardiology this afternoon at the request of the ER physician and currently the plans are in place for trending the troponin with further workup in the a.m. with a stress test if her troponin should be non-elevated. She reports that the chest pain is of a pressure in nature, primarily substernal, with nonradiation to her jaw or her arm. She reports no associated diaphoresis or other symptomatology and rates her pain at baseline of 5/10 and overall stable. She is awake and alert this afternoon, denies current distress, and is lying bed in bed during evaluation comfortably. PAST MEDICAL HISTORY: Positive for end-stage renal disease with hemodialysis on a Wednesday, Wednesday, Wednesday schedule at [place] [address] location. History is also positive for diabetes mellitus with previous notation of hemoglobin A1c of 13.3 in 2013, hypertension, chronic pain, fibromyalgia, depression, BIGGS, vitamin D deficiency. SOCIAL HISTORY: No EtOH. No illicit drugs. No current use of tobacco, previous smoker by her own admission, but has quit smoking several years ago. REVIEW OF SYSTEMS: Completed. Please see HPI for pertinent details. FAMILY HISTORY: Noncontributory and not reviewed during this consultation and admission. ALLERGIES: SHE LISTS ALLERGIES TO CYMBALTA, LATEX, LYRICA, HYDROCODONE, AND ASPIRIN. ACTIVE MEDICATIONS: Include amlodipine 10 mg p.o. daily, Tenormin 50 mg p.o. daily Angeli-Jose A one tablet p.o. daily, PhosLo 667 mg p.o. t.i.d., Colace 100 mg daily p.r.n. for constipation, Trulicity 0.75 mg subcu q.7 days, Pepcid 20 mg p.o. daily, Flonase one spray SERA p.r.n., GlucaGen one IM p.r.n., NovoLog sliding scale insulin, Zofran 4 mg p.o. q.4 hours p.r.n., Phenergan 25 q.4 hours p.r.n., Senokot one tab daily p.r.n. for constipation, and Diovan 320 mg p.o. daily. PHYSICAL EXAMINATION: VITAL SIGNS: Blood pressure 156/85, temperature 96.8, respiratory rate of 15, and 98% on History And Physical [address] [address] NAME: GIOVANI AGUIRRE : 65 STATUS : ADM Dalila PAT#: [id number] AGE: 50 ADM/REG DATE : 09/21/16 MR#: [id number] REPORT SERV DATE: 09/21/16 DICTATED BY: VLADIMIR WRIGHT DATE: 09/21/16 REPORT STATUS : Draft TRANSCRIBED BY: MODL DATE: 09/21/16 room air. GENERAL: She is awake, alert, oriented, in no acute distress during evaluation. HEENT: Normocephalic, atraumatic. Normal ocular movements. No scleral icterus. No conjunctival pallor is appreciated. NECK: Supple without thyromegaly. No JVD or mass. CHEST: Shows positive S1 and S2. No rubs or gallops. LUNGS: Diminished but clear to auscultation throughout. Normal expansion and effort bilaterally. GI: Shows positive bowel sounds in all four quadrants. Rounded, obese abdomen. No appreciable mass. No tenderness. : Deferred. NEUROLOGIC: She appears to be grossly intact. Nonfocal. EXTREMITIES: Show positive pulses to all four extremities. No clubbing, cyanosis, or edema. She does have a left upper extremity fistula with a palpable bruit and thrill. SKIN: Warm, dry, and intact to visualized surfaces. No rash, lesions, or ecchymosis. LABORATORY DATA: Pertinent labs and imaging to this evaluation are as follows: Troponin is less than 0.02. B-natriuretic peptide 47.2. WBC 8.2, RBC 5.33, hemoglobin 13.3, hematocrit 41.1, platelets 149. Sodium 141, potassium 3.6, chloride 103, CO2 of 29, BUN 27, creatinine 3.95, reflected GFR at 12 mL/minute, calcium 8.4, magnesium 8.1, lipase 728. Portable chest x-ray: No radiographic evidence of acute process. IMPRESSION AND PLAN: End-stage renal disease in the patient who dialyzes on a Wednesday, Wednesday, [place] schedule [facility] [address] , now reporting to [facility] with complaint of chest pressure/chest pain with clinical course as listed above recently in her hemodialysis unit. She is admitted now and will be placed in observation currently at admission for evaluation of chest pain. Trend her troponins as listed above, consider stress evaluation tomorrow, to be currently planned per Cardiology if troponins are non- elevated. Protect her left upper extremity fistula, provide antinausea medications, sliding scale insulin, renal ADA diet. With elevated amylase, may consider further workup in regard of referred possible GI pain for possible pancreatitis if clinically warranted. Further modification of treatment plan may be made based on the clinical presentation and the patient's laboratory results and further consultation with renal attending. We appreciate Cardiology Services providing assistance in care and input with this patient. DICTATED BY: Cole Lemos NP JR/HEDY Vladimir Wright M.D. / [id number] CC: History And Physical [address] [address] NAME: GIOVANI AGUIRRE : 65 STATUS : ADM Dalila PAT#: [id number] AGE: 50 ADM/REG DATE : 09/21/16 MR#: [id number] REPORT SERV DATE: 09/21/16 DICTATED BY: VLADIMIR WRIGHT DATE: 09/21/16 REPORT STATUS : Draft TRANSCRIBED BY: MODL DATE: 09/21/16 Erin Contreras KEITH ANDREW
--- NOTE | ~2016-09-21 | CN ---
Consultation Report [facility] [address] [place] [place]. [address] NAME: GIOVANI AGUIRRE : 65 STATUS : ADM Dalila PAT#: [id number] AGE: 50 ADM/REG DATE : 09/21/16 MR#: [id number] REPORT SERV DATE: 09/21/16 DICTATED BY: JEOVANNY GOETZ DATE: 09/21/16 REPORT STATUS : Draft TRANSCRIBED BY: MODL DATE: 09/21/16 CARDIOLOGY CONSULTATION DATE OF CONSULTATION: 09/21/2016 ADMISSION DIAGNOSIS: Chest pain. HISTORY OF PRESENT ILLNESS: Ms. Aguirre is a very pleasant, 50-year-old female whom we have been asked to see by the emergency room team for evaluation of chest pain. She has a medical history notable for end-stage renal disease with recent initiation of hemodialysis via an AV fistula. She has insulin-dependent diabetes managed with the insulin pump, hypertension, hyperlipidemia, but no history of coronary heart disease. She was at dialysis this morning, reports a sudden onset of substernal chest pain. She describes it as a sharp pain directly in the center of her chest without radiation to her neck, back, or jaw. This is associated with nausea, but no palpitations or shortness of breath. It persisted throughout most of dialysis. She states that she took three sublingual nitroglycerin without significant relief. Due to the severity and persistence of the pain, she was referred to the ER where an initial EKG demonstrated no ischemic changes and troponin thus far has been negative. We have been asked to see her in this context. At the time my evaluation, the patient states that she feels better but still has what she describes as a persistent mild nagging discomfort in her chest. She denies any recent exertional chest discomfort or change in exercise capacity. She denies claudication, recent neurologic changes, or volume overload. PAST MEDICAL HISTORY: 1. End-stage renal disease. 2. Hypertension. 3. Hyperlipidemia. 4. Diabetes. 5. Chronic pain/fibromyalgia. 6. Nonalcoholic steatohepatitis. MEDICATIONS: Reviewed per medical record. ALLERGIES: DULOXETINE, LATEX, PREGABALIN, HYDROCODONE, AND ASPIRIN. FAMILY HISTORY: Noncontributory. SOCIAL HISTORY: The patient is . 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 She is a former smoker, quit earlier this year. She denies illicit drugs. REVIEW OF SYSTEMS: Consultation Report [facility] [address] [place]. [address] NAME: GIOVANI AGUIRRE : 65 STATUS : ADM Dalila PAT#: [id number] AGE: 50 ADM/REG DATE : 09/21/16 MR#: [id number] REPORT SERV DATE: 09/21/16 DICTATED BY: JEOVANNY GOETZ DATE: 09/21/16 REPORT STATUS : Draft TRANSCRIBED BY: MODL DATE: 09/21/16 Per HPI, otherwise negative. PHYSICAL EXAMINATION: VITAL SIGNS: Blood pressure 150/86, heart rate 75, temperature 97.8, 97% on room air. GENERAL: Appears comfortable. HEENT: Sclerae anicteric; mucous membranes moist. NECK: No JVD. Thyroid not tender or enlarged CARDIOVASCULAR: Regular rhythm with normal S1/S2. No murmurs, rubs, or gallop. PULMONARY: Lung mejía CTA. ABDOMEN: Soft, nontender, no masses EXTREMITIES: Warm, no edema. NEUROLOGIC: Grossly without deficits LABORATORY DATA: Reviewed. Notable for potassium 3.6, creatinine 3.95. WBC 8.2, hemoglobin 13.3, troponin less than 0.02 x2. EKG demonstrates sinus rhythm with borderline LVH and T- wave inversions V2 through V3, nonspecific, unchanged from prior study. IMPRESSIONS/RECOMMENDATIONS: Chest discomfort: Although unstable angina is a possibility, I am less suspicious of this based on clinical factors and workup today. The patient certainly has risk factors for premature CAD including diabetes, hypertension, and end-stage renal disease, but in the absence of objective ischemic changes, I would favor a noninvasive evaluation with a stress test. This has been ordered for the morning, and we will proceed with this plan unless there is a change in her status. Thank you for consultation. We will follow patient with you. ANTONI/HEDY Jeovanny Goetz MD / [id number] CC: Erin Contreras MD
[~2016-09-21 09:42] MED LIST changes: +ATEN50; +NORV10 PO; +PEP20 PO; +ZOFRAN ODT4 MG PO
[2016-09-21 10:01] LABS: INTERNATIONAL NORMAL RATI 0.9 UNITS (-); PARTIAL THROMBO TIME 27.5 SEC (22.5-37.2); PROTIME (NOT ORD) 12.5 SEC (12.0-14.5)
[2016-09-21 10:08] LABS: BASOPHILS 0.2 %; BASOPHILS ABSOLUTE 0.02 10/3/uL (0.0-0.16); EOSINOPHILS 6.3 %; EOSINOPHILS ABSOLUTE 0.51 10/3/uL (0.0-0.53); IMMATURE GRANULOCYTES 0.1 %; IMMATURE GRANULOCYTES ABSOLUTE 0.01 10/3/uL (0.0-0.11); LYMPHOCYTES 47.2 %; LYMPHOCYTES ABSOLUTE 3.85 10/3/uL (0.67-4.30); MEAN CORPUS HGB CONC 32.4 g/dL (32.0-36.0); MEAN CORPUSCULAR VOLUME 77.1 fL (80-100); MEAN PLATELET VOLUME 9.6 fL (9.2-13.0); MONOCYTES 6.6 %; MONOCYTES ABSOLUTE 0.54 10/3/uL (0.21-1.20); NEUTROPHILS 39.6 %; NEUTROPHILS ABSOLUTE 3.22 10/3/uL (2.02-8.40); RBC DISTRIBUTION WIDTH 12.5 % (12.0-16.0)
[2016-09-21 10:13] LABS: BUN (BLOOD UREA NITROGEN) 27 MG/DL (6-23); CALCIUM, SERUM 8.4 MG/DL (8.5-10.4); CHEST PAIN PROFILE TAT 0 Hrs 24 Mins; CHLORIDE, SERUM 103 MMOL/L (96-112); CO2 (CARBON DIOXIDE) 29 MMOL/L (24-34); CREATININE 3.95 MG/DL (0.55-1.02); GFR AFRICAN AMERICAN 14 ML/MIN (>=60); GFR NON AFRICAN AMERICAN 12 ML/MIN (>=60); GLUCOSE, SERUM 159 MG/DL (60-99); POTASSIUM, SERUM 3.6 MMOL/L (3.5-5.3); SODIUM, SERUM 141 MMOL/L (135-148); TROPONIN I <0.02 NG/ML (<0.05)
[2016-09-21 10:15] LABS: ER CBC TAT 0 Hrs 14 Mins; HEMATOCRIT 41.1 % (36.0-48.0); HEMOGLOBIN 13.3 g/dL (12.0-16.0); MANUAL DIFF NO %; PLATELET COUNT 149 10/3/uL (150-400); RED CELL COUNT 5.33 10/6/uL (4.0-5.6); WHITE BLOOD CELLS 8.2 10/3/uL (4.5-10.5)
[2016-09-21] MEDS ORDERED: NOVOPEN SC (11:05)
[2016-09-21] MEDS ORDERED: GLUCAGEN IM (11:05)
[2016-09-21] MEDS ORDERED: FLONASE NAS (11:06)
[2016-09-21] MEDS ORDERED: NORV10 PO (11:06)
[2016-09-21] MEDS ORDERED: ATEN50 PO (11:06)
[2016-09-21] MEDS ORDERED: PHOSLO PO (11:06)
[2016-09-21] MEDS ORDERED: ZOFRAN4 PO (11:07)
[2016-09-21] MEDS ORDERED: PEP20 PO (11:07)
[2016-09-21] MEDS ORDERED: PR25 PO (11:08)
[2016-09-21] MEDS ORDERED: SENTAB PO (11:08)
[2016-09-21] MEDS ORDERED: RENA-VITE PO (11:08)
[2016-09-21] MEDS ORDERED: DSS PO (11:09)
[2016-09-21] MEDS ORDERED: DIOVAN320 MG PO (11:09)
[2016-09-21] MEDS ORDERED: TRULICITY0.75 MG/0. SQ (11:10)
[2016-09-22 05:20] LABS: BASOPHILS 0.4 %; BASOPHILS ABSOLUTE 0.03 10/3/uL (0.0-0.16); EOSINOPHILS 5.9 %; HEMOGLOBIN 14.6 g/dL (12.0-16.0); IMMATURE GRANULOCYTES 0.1 %; IMMATURE GRANULOCYTES ABSOLUTE 0.01 10/3/uL (0.0-0.11); LYMPHOCYTES 58.6 %; LYMPHOCYTES ABSOLUTE 4.93 10/3/uL (0.67-4.30); MEAN CORPUS HGB CONC 31.9 g/dL (32.0-36.0); MEAN CORPUSCULAR HEMOGLOB 24.8 pg (26.0-34.0); MEAN CORPUSCULAR VOLUME 77.6 fL (80-100); MONOCYTES ABSOLUTE 0.34 10/3/uL (0.21-1.20); PLATELET COUNT 178 10/3/uL (150-400); RBC DISTRIBUTION WIDTH 12.4 % (12.0-16.0); RED CELL COUNT 5.89 10/6/uL (4.0-5.6); WHITE BLOOD CELLS 8.4 10/3/uL (4.5-10.5)
[2016-09-22 05:21] LABS: HEMATOCRIT 45.7 % (36.0-48.0); MANUAL DIFF NO %
[2016-09-22 05:38] LABS: CHLORIDE, SERUM 99 MMOL/L (96-112); CHOLESTEROL 147 MG/DL (< 200); CO2 (CARBON DIOXIDE) 30 MMOL/L (24-34); POTASSIUM, SERUM 3.5 MMOL/L (3.5-5.3); SODIUM, SERUM 135 MMOL/L (135-148); TROPONIN I <0.02 NG/ML (<0.05)
[2016-09-22 05:39] LABS: BUN (BLOOD UREA NITROGEN) 34 MG/DL (6-23); CALCIUM, SERUM 9.8 MG/DL (8.5-10.4); CHOL/HDL RATIO(NOT ORDER) 2.4 (0-5); GFR AFRICAN AMERICAN 9 ML/MIN (>=60); GFR NON AFRICAN AMERICAN 8 ML/MIN (>=60); GLUCOSE, SERUM 115 MG/DL (60-99); HDL CHOLESTEROL 61 MG/DL (> 49); LDL CHOLESTEROL 50 MG/DL (< 130); NON-HDL CHOLESTEROL 86 MG/DL (< 160); PHOSPHORUS, SERUM 4.9 MG/DL (2.5-4.5); TRIGLYCERIDE 183 MG/DL (< 150)
[2016-09-22] MEDS ORDERED: FLONASE NAS (15:57)
[2016-09-22] MEDS ORDERED: ASA5GR PO (16:00)
[2017-01-19] MEDS ORDERED: PAROXETINE MESYLATE 7.5 MG PO (17:26)
[2017-01-19] MEDS ORDERED: NORV10 PO (17:27)
[2017-01-19] MEDS ORDERED: ATEN50 PO (17:27)
[2017-01-19] MEDS ORDERED: PHOSLO PO (17:28)
[2017-01-19] MEDS ORDERED: PEP20 PO (17:30)
[2017-01-19] MEDS ORDERED: ZOFRAN4 PO (17:31)
[2017-01-19] MEDS ORDERED: PR12.5 PO (17:32)
[2017-01-19] MEDS ORDERED: FLONASE NAS (17:33)
[2017-01-19] MEDS ORDERED: GLUCAGEN IM (17:35)
[2017-01-19] MEDS ORDERED: NOVOPEN SC (17:35)
[2017-01-19] MEDS ORDERED: RENA-VITE PO (17:36)
[2017-01-19] MEDS ORDERED: SENTAB PO (17:37)
[2017-01-19] MEDS ORDERED: DIOVAN320 MG PO (17:37)
[2017-01-19] MEDS ORDERED: TRULICITY0.75 MG/0. SQ (17:38)
[2017-01-19] MEDS ORDERED: ERY-TAB250 MG PO (17:40)
[2017-01-19] MEDS ORDERED: RENVELA800 MG PO (17:42)
[2017-01-19] MEDS ORDERED: CEFT5 PO (17:49)
== END 2016-09-22 18:08 | disposition home or self-care (01) ==
LOC: ER 09:42 → 2SO 13:43
PROVIDERS: Emergency Medicine; Physician Assistant; Registered Nurse
DX: R07.89 Other chest pain (principal); E78.5 Hyperlipidemia, unspecified; I12.0 Hypertensive chronic kidney disease with stage 5 chronic kidney disease or end stage renal disease; E11.22 Type 2 diabetes mellitus with diabetic chronic kidney disease; N18.6 End stage renal disease; G89.29 Other chronic pain; M79.7 Fibromyalgia; Z99.2 Dependence on renal dialysis; Z87.891 Personal history of nicotine dependence; Z91.040 Latex allergy status; Z88.1 Allergy status to other antibiotic agents; Z88.5 Allergy status to narcotic agent; Z88.2 Allergy status to sulfonamides
CPT/HCPCS: 71010; 74176; 78452; 80048; 80061; 80069; 82150; 82962; 83690; 83735; 83880; 84484; 85025; 85610; 85730; 93005; 93017; 96374; 96375; 96376; 99285; A9270-GY; A9502; G0378; J0153; J0360; J2405; J2550